=== PATIENT | female | born 1985 | race African-American/Black ===

== ENCOUNTER 2022-06-09 13:01 | Emergency (ER) | payer SELFPAY ==
[~2022-06-09] VITALS: Ht 175.3 cm; Wt 142.9 kg
[2022-06-09 14:51] VITALS: BP 146/87
[2022-06-09] MEDS ORDERED: AMOX-277 PO (15:03)
[2022-06-09] MEDS ORDERED: ALBU108A5 IN (15:03)
[2022-06-09] MEDS ORDERED: PRED20TA2 PO (15:03)
== END 2022-06-09 15:34 | disposition home or self-care (01) ==
LOC: ER 13:01
DX: H66.91 Otitis media, unspecified, right ear (principal); J02.9 Acute pharyngitis, unspecified; J45.909 Unspecified asthma, uncomplicated; Z76.0 Encounter for issue of repeat prescription; Z79.2 Long term (current) use of antibiotics; Z79.899 Other long term (current) drug therapy

== ENCOUNTER 2022-06-13 16:39 | Emergency (ER) | payer SELFPAY ==
[~2022-06-13] VITALS: Ht 177.8 cm; Wt 93.0 kg
[~2022-06-13 16:39] MED LIST: ALBU108A5 IN; AMOX-277 PO; PRED20TA2 PO
[2022-06-13 19:47] LABS: Basophils # (auto) 0.1 10 ^3/uL (0-0.2); Eosinophils # (auto) 0.1 10 ^3/uL (0-0.8); Neutrophils # (auto) 7.9 10 ^3/uL (1.6-8.6)
[2022-06-13 19:48] LABS: Basophils % (auto) 0.9 % (0.0-2.0); Hematocrit 40.8 % (36.0-46.0); Hemoglobin 13.4 g/dL (12.2-16.2); Lymphocytes % (auto) 24.7 % (10.0-50.0); Mean Corpuscular Hemoglobin 26.6 pg (28.0-32.0); Mean Corpuscular Hgb Conc. 32.7 g/dL (32.0-36.0); Mean Corpuscular Volume 81.2 fL (80.0-100.0); Monocytes % (auto) 8.1 % (0.0-12.0); Neutrophils % (auto) 65.3 % (37.0-80.0); Nucleated Red Blood Cells % 0.1 %; Red Blood Cells 5.02 10^6/uL (4.0-5.20); Red Cell Distribution Width 15.2 % (11.8-14.3); White Blood Cell 12.1 10^3/uL (4.4-10.8)
[2022-06-13 20:07] LABS: Albumin 3.3 g/dL (3.4-5.0); BUN/Creatinine Ratio 16.5; Calcium 9.3 mg/dL (8.5-10.1)
[2022-06-13 20:10] LABS: Bilirubin, Total 0.2 mg/dL (0.2-1.0); Total Protein 7.6 g/dL (6.4-8.2)
[2022-06-13] MEDS ORDERED: METH4PAK PO (22:24)
[2022-06-13] MEDS ORDERED: DICL75TA2 PO (22:24)
[2022-06-14 00:42] VITALS: BP 139/87
== END 2022-06-14 00:53 | disposition home or self-care (01) ==
LOC: ER 16:39
DX: M79.605 Pain in left leg (principal); J45.909 Unspecified asthma, uncomplicated; Z79.2 Long term (current) use of antibiotics; Z79.899 Other long term (current) drug therapy
CPT/HCPCS: 36415; 73562; 80053; 85025; 85652; 93971